=== PATIENT | male | born 1955 | race Caucasian/White ===

== ENCOUNTER 2018-09-08 15:20 | Inpatient (IN) | payer MEDICARE, OTHER ==
[~2018-09-08] VITALS: Ht 190.5 cm; Wt 142.9 kg
[2018-09-08] MEDS ORDERED: ESCITALOPRAM 10 MG TABLET (15:41)
[2018-09-08] MEDS ORDERED: LISINOPRIL 20 MG TABLET (15:41)
[2018-09-08] MEDS ORDERED: HALOPERIDOL 5 MG TABLET (15:41)
[2018-09-08] MEDS ORDERED: HALO10TA13 (15:41)
[2018-09-08] MEDS ORDERED: ASPI-605 PO (15:41)
[2018-09-08] MEDS ORDERED: TAMSULOSIN HCL 0.4 MG CAPSULE PO (15:42)
[2018-09-08] MEDS ORDERED: POLY1POW14 PO (15:42)
[2018-09-08] MEDS ORDERED: LORAZEPAM 1 MG TABLET (15:42)
--- NOTE | 2018-09-08 15:42 | NUR ---
PT'S HOME MED LIST OBTAINED FROM TRANSFER SUMMARY REPORT FROM [facility].
[2018-09-08 15:46] LABS: BASOPHILS % (AUTO) 0.4 % (0.0-2.0); HEMOGLOBIN 12.5 g/dL (12.5-16.3); MEAN CORPUSCULAR HEMOGLOBIN 28.8 uug (23.8-33.4); MEAN CORPUSCULAR HGB CONC 34 g/dL (32.5-36.3); MEAN CORPUSCULAR VOLUME 85.5 fL (73.0-96.2); MONOCYTES # (AUTO) 0.5 K/uL (2.0-10.0); MONOCYTES % (AUTO) 8.6 % (0.0-11.0); NEUTROPHILS # (AUTO) 3.6 K/uL (1.8-8.9); PLATELET COUNT (AUTO) 226 K/uL (152-348); RED BLOOD CELL COUNT(AUTO) 4.33 MIL/uL (4.06-5.63); WHITE BLOOD COUNT (AUTO) 6.1 K/uL (3.6-10.2)
[2018-09-08 15:50] LABS: CARBON DIOXIDE 25 mmol/L (21-32); CHLORIDE 105 mmol/L (98-107); GLUCOSE 119 mg/dL (74-106); POTASSIUM 3.8 mmol/L (3.5-5.1); UREA NITROGEN, BLOOD 16 mg/dL (7-18)
[2018-09-08 15:56] LABS: ALANINE AMINOTRANSFERASE 44 U/L (16-63); ALKALINE PHOSPHATASE 60 U/L (50-136); ASPARTATE AMINOTRANSFERASE 19 U/L (15-37); BILIRUBIN,DIRECT 0.1 mg/dL (0.0-0.2); BILIRUBIN,TOTAL 0.3 mg/dL (0.2-1.0); TOTAL PROTEIN, SERUM 6.8 g/dL (6.4-8.2)
[2018-09-08 15:57] LABS: ACETAMINOPHEN < 2.0 ug/mL (10-30)
[2018-09-08 15:58] LABS: ETHANOL < 3 MG/DL (0-0)
--- NOTE | 2018-09-08 16:05 | NUR ---
Medically cleared by Dr Esquivel
--- NOTE | 2018-09-08 16:38 | NUR ---
Transfered to [facility] [place] [facility]
--- NOTE | 2018-09-08 16:45 | NUR ---
PT ARRIVED TO UNIT ON GURNEY ACCOMPANIED BY ER NURSE. PT IS CALM AND COOPERATIVE. SLOW WITH SPEECH, APPEARS SEDATED AND DROWSY. DENIES PAIN OR DISCOMFORT AT THIS TIME. AOX1, NAME ONLY. NO COMBATIVE OR AGGRESSIVE BEHAVIOR NOTED. V/S STABLE.
[2018-09-08] MEDS ORDERED: TEMAZEPAM 7.5 MG CAPSULE PO PRN (17:15)
[2018-09-08] MEDS ORDERED: MAGNESIUM HYDROXIDE 30 ML LIQUID UDC PO PRN (17:15)
[2018-09-08] MEDS ORDERED: ACETAMINOPHEN 325 MG TABLET PO PRN (17:15)
[2018-09-08] MEDS ORDERED: MAG HYDROX/AL HYDROX/SIMETH 30 ML LIQUID UDC PO PRN (17:15)
[2018-09-08] MEDS ORDERED: CLONAZEPAM 0.5 MG TABLET PO PRN (17:15)
[2018-09-08] MEDS ORDERED: TEMAZEPAM 15 MG CAPSULE PO PRN (18:00)
[2018-09-08] MEDS ORDERED: LISI-603 PO (19:00)
[2018-09-08 21:26] VITALS: BP 132/73
[2018-09-09 07:30] VITALS: BP 105/67
[2018-09-09 07:55] LABS: BILIRUBIN,TOTAL 0.5 mg/dL (0.2-1.0); TOTAL PROTEIN, SERUM 6.8 g/dL (6.4-8.2)
[2018-09-09] MEDS: TAMSULOSIN HCL 0.4 MG CAP.SR.24H PO SCH (08:03)
[2018-09-09] MEDS: ASPIRIN EC 81 MG TABLET.DR PO SCH (08:03)
[2018-09-09] MEDS: LISINOPRIL 20 MG TABLET PO SCH (08:04)
[2018-09-09] MEDS: MIRALAX 17 GM POWD.PACK PO SCH (08:05)
[2018-09-09] MEDS: HALOPERIDOL 5 MG TABLET PO SCH ×2 (12:10→16:14)
[2018-09-09] MEDS: BENZTROPINE MESYLATE 0.5 MG TABLET PO SCH ×2 (12:10→16:14)
[2018-09-09 16:00] VITALS: BP 107/55
[2018-09-09] MEDS: MIRTAZAPINE 15 MG TABLET PO SCH (20:05)
[2018-09-09 21:17] VITALS: BP 108/65
[2018-09-10 07:30] VITALS: BP 110/53
[2018-09-10] MEDS: TAMSULOSIN HCL 0.4 MG CAP.SR.24H PO SCH (08:35)
[2018-09-10] MEDS: BENZTROPINE MESYLATE 0.5 MG TABLET PO SCH ×2 (08:36→17:08)
[2018-09-10] MEDS: MIRALAX 17 GM POWD.PACK PO SCH (08:36)
[2018-09-10] MEDS: HALOPERIDOL 5 MG TABLET PO SCH ×2 (08:36→17:08)
[2018-09-10] MEDS: ASPIRIN EC 81 MG TABLET.DR PO SCH (08:36)
[2018-09-10] MEDS: LISINOPRIL 20 MG TABLET PO SCH (08:36)
--- NOTE | 2018-09-10 15:27 | NUR ---
Initial Discharge Plan: Pt is a 63 year old male who currently lives at [facility] ([phone]) [address] [place] [address], [id number]. skid worker contacted [facility] ([phone]) and was forwarded to health care facility administrator Brittany ([phone]), social research assistant spoke with health care facility administrator that stated that pts discharge acceptance is based on pts mental health renal case manager Laure Casillas (cell [phone]). Gianluca Moreno works with [facility] closely regarding pts. skid worker reached out to pts renal case manager Laure Casillas, however no case picker. skid worker left VM for renal case manager. skid worker will continue to collaborate with patient, family and MD on a safe and proper discharge.
[2018-09-10 16:04] VITALS: BP 105/58
--- NOTE | 2018-09-10 16:12 | NUR ---
Discharge planning: barrow worker helper received call from pts mental health bottle caser Laure Casillas (cell [phone]) to discuss future discharge plan. Per pts bottle caser Lauremartha Casillas facility will not accept pt back until pt is assessed by their psychiatric unit. rattan worker is requesting pt be discharged to their [facility] outpatient program, per bottle caser she is requesting to be notified when discharge will be to address placement process. Laure is requesting to know when pt will be discharge to have either a crisis bed available or a hospital bed available where pt will be assessed. Social work will discuss above mentioned information with bottle house cleaners supervisor and pts family members prior to discharge.
--- NOTE | 2018-09-10 16:13 | NUR ---
Social work: Pts cyanide case hardener Laure Casillas ([phone]) is requesting [facility] contact [facility] outpatient program MD Dr Rios [phone] for detailed psychiatric and medical history. will forward message to .
[2018-09-10 20:00] VITALS: BP 109/65
[2018-09-10] MEDS: MIRTAZAPINE 15 MG TABLET PO SCH (20:04)
[2018-09-11 07:30] VITALS: BP 108/52
[2018-09-11] MEDS: LISINOPRIL 20 MG TABLET PO SCH (08:40)
[2018-09-11] MEDS: BENZTROPINE MESYLATE 0.5 MG TABLET PO SCH (08:40)
[2018-09-11] MEDS: HALOPERIDOL 5 MG TABLET PO SCH (08:40)
[2018-09-11] MEDS: TAMSULOSIN HCL 0.4 MG CAP.SR.24H PO SCH (08:40)
[2018-09-11] MEDS: MIRALAX 17 GM POWD.PACK PO SCH (08:40)
[2018-09-11] MEDS: ASPIRIN EC 81 MG TABLET.DR PO SCH (08:40)
--- NOTE | 2018-09-11 12:42 | NUR ---
DC TRANSFER NOTE: Patient will be transferred to the [facility] [[address] [place] [address]; ] and transportation has been arranged through [facility] [employer] [[phone]] by Laure, casework manager, at [facility] [[address] [place] [address]; ]. Laure, who is patient casework manager, has arranged transfer of patient to psychiatric facility and states patient will be followed by Dr. Yap (psychiatrist) and Dr. Parsons [Resort Host]. Patient has been made aware of transfer and is agreeable to plan. cold storage worker called and spoke with patient sister, Windy [[phone]], who is aware and agreeable with transfer of patient. Patient will remain on [address] certification for gravely disabled and all paperwork has been sent with patient to facility. cold storage worker has faxed continuing care packet to facility with attention to Hamlet Alberts RN. Patient psychiatrist at [facility], Dr. Calvin, is aware and agreeable with transfer of patient. Addendum: 09/11/18 at 1252 by MARICEL NIELSEN Patient will be picked up by [facility] at 2:30pm.
[2018-09-11] MEDS ORDERED: LISI-603 PO (13:24)
[2018-09-11] MEDS ORDERED: TAMSULOSIN HCL 0.4 MG CAPSULE PO (13:24)
[2018-09-11] MEDS ORDERED: POLY1POW14 PO (13:24)
[2018-09-11] MEDS ORDERED: ASPI-605 PO (13:24)
[2018-09-11 15:21] VITALS: BP 106/53
== END 2018-09-11 16:15 | DRG 885 ==
LOC: ER 15:20 → GPS 16:30
PROVIDERS: ADMIT Psychiatry & Neurology Psychiatry; ATTEND Nurse Practitioner Acute Care
DX: F25.9 Schizoaffective disorder, unspecified (principal); E87.1 Hypo-osmolality and hyponatremia; E11.9 Type 2 diabetes mellitus without complications; E66.9 Obesity, unspecified; Z68.39 Body mass index [BMI] 39.0-39.9, adult; I10 Essential (primary) hypertension; Z79.899 Other long term (current) drug therapy; R63.1 Polydipsia; Z79.82 Long term (current) use of aspirin
CPT/HCPCS: 36415; 85025; 93005; 97110; 97530; A4663; G0480; G0480-TC